=== PATIENT | male | born 1990 | race Two or more races ===

== ENCOUNTER 2018-03-16 15:43 | Outpatient (CLI) | payer SELFPAY ==
--- NOTE | 2018-03-17 01:18 | XRAY Report ---
Reason: POSITIVE PPD Procedure Date: 03/16/2018 Accession Number: [id number] / [id number] Procedure: XRN - Chest 2 View X-Ray CPT Code: 11881 FULL RESULT: EXAM: CHEST RADIOGRAPHY EXAM DATE: 03/16/2018 03:58 PM. CLINICAL HISTORY: POSITIVE PPD. COMPARISON: CHEST 2 VIEW PA/LAT 10/24/2013 5:05 AM. TECHNIQUE: 2 views. FINDINGS: Lungs/Pleura: No dense consolidation. No large effusion or pneumothorax. No pulmonary edema. Mediastinum: Heart and mediastinal contours are unremarkable. Other: None. IMPRESSION: Unremarkable chest radiographs. [facility]
== END 2018-03-16 15:44 | disposition home or self-care (01) ==
LOC: DI.N 15:43
PROVIDERS: ATTEND Nurse Practitioner Gerontology
DX: R76.11 Nonspecific reaction to tuberculin skin test without active tuberculosis (principal)
CPT/HCPCS: 71046

== ENCOUNTER 2018-04-28 08:00 | Outpatient (CLI) | payer OTHER ==
[2018-04-28 18:43] LABS: BASOPHILS % (AUTO) 0.7 %; EOSINOPHILS # (AUTO) 0.1 10^3/uL (0.0-0.7); HGB - HEMOGLOBIN 13.9 g/dL (14.0-18.0); LYMPHOCYTES # (AUTO) 2.1 10^3/uL (1.5-3.5); LYMPHOCYTES % (AUTO) 33.6 %; MEAN CORPUSCULAR HEMOGLOBIN 31.2 pg (27.0-31.0); MEAN CORPUSCULAR HGB CONC 34.5 g/dL (32.0-36.0); MEAN CORPUSCULAR VOLUME 90.6 fL (80.0-94.0); MEAN PLATELET VOLUME 8.1 fL (7.4-11.4); MONOCYTES # (AUTO) 0.7 10^3/uL (0.0-1.0); MONOCYTES % (AUTO) 11.5 %; NEUTROPHILS # (AUTO) 3.4 10^3/uL (1.5-6.6); NEUTROPHILS % (AUTO) 53.2 %; PLT - PLATELET COUNT 196 10^3/uL (130-450); RED BLOOD COUNT 4.47 10^6/uL (4.70-6.10); RED CELL DISTRIBUTION WIDTH 12.6 % (12.0-15.0); WHITE BLOOD COUNT 6.4 x10^3/uL (4.8-10.8)
[2018-04-28 19:37] LABS: CALCIUM 8.8 mg/dL (8.5-10.3); CREATININE 0.7 mg/dL (0.6-1.2)
== END 2018-04-28 23:59 | disposition home or self-care (01) ==
LOC: LAB.N 08:00
PROVIDERS: ATTEND Physician Assistant Medical
DX: N50.812 Left testicular pain (principal); N50.9 Disorder of male genital organs, unspecified
CPT/HCPCS: 36415; 80048; 85025

== ENCOUNTER 2018-06-07 15:27 | Outpatient (CLI) | payer OTHER ==
--- NOTE | 2018-06-07 17:22 | Ultrasound Report ---
Reason: LT TESTICULAR PAIN, MASS Procedure Date: 06/07/2018 Accession Number: [id number] / [id number] Procedure: US - Testicle CPT Code: FULL RESULT: EXAM:SCROTAL ULTRASOUND EXAM DATE: 06/07/2018 03:35 PM. CLINICAL HISTORY: LT TESTICULAR PAIN, MASS. COMPARISON: TESTICLE W/DOPPLER 06/07/2018 3:27 PM. TECHNIQUE: Real-time scanning was performed with static images obtained. Color-flow images were utilized. FINDINGS: Right: Testis: 4.7 x 2.7 x 2.9 cm. Normal size and echotexture. No mass, calcification, or abnormal blood flow. Epididymis: 0.8 x 1 x 1.3 cm. Normal size and echotexture. No mass or abnormal blood flow. Hydrocele: Trace right hydrocele. Varicocele: None Left: Testis: 4.7 x 3.1 x 3.1 cm. Normal size and echotexture. There are two separate complex cystic masses in the left testicle, measuring 2.8 x 2.7 x 3 cm and 1.4 x 1.3 x 1.4 cm. There is no internal vascularity on color Doppler assessment. Both complex cystic masses include internal septations, solid nodular components and cystic/fluid containing spaces. Epididymis: 0.6 x 1.2 x 0.9 cm. Normal size and echotexture. No mass or abnormal blood flow. Hydrocele: Trace left hydrocele. Varicocele: Mild left varicocele IMPRESSION: Two separate complex cystic masses in left testicle. Larger measures 2.8 x 2.7 x 3 cm and smaller measures 1.4 x 1.3 x 1.4 cm. No internal vascularity on color Doppler assessment. Differentials include neoplasm (seminomatous or nonseminomatous germ cell tumor), complex hematomas (to be correlated with history of trauma. Trace bilateral hydroceles. Mild left varicocele. RAD[facility]
== END 2018-06-07 15:28 | disposition home or self-care (01) ==
LOC: DI 15:27
PROVIDERS: ATTEND Physician Assistant Medical
DX: N50.812 Left testicular pain (principal); N44.2 Benign cyst of testis; I86.1 Scrotal varices; N43.3 Hydrocele, unspecified
CPT/HCPCS: 76870

== ENCOUNTER 2019-03-28 10:01 | Outpatient (CLI) | payer OTHER | END 2019-03-28 10:02 | disposition home or self-care (01) | LOC: DI 10:01 | PROVIDERS: ATTEND Physician Assistant Medical | DX: R01.1 Cardiac murmur, unspecified (principal) | CPT/HCPCS: 93306 ==

== ENCOUNTER 2019-12-23 08:00 | Outpatient (CLI) | payer OTHER | END 2019-12-23 23:59 | disposition home or self-care (01) | LOC: LAB.WCP 08:00 | PROVIDERS: ATTEND Internal Medicine | DX: Z23 Encounter for immunization (principal) | CPT/HCPCS: 36415; 81599; 86480 ==

== ENCOUNTER 2020-01-02 12:33 | Outpatient (CLI) | payer OTHER ==
--- NOTE | 2020-01-02 17:11 | XRAY Report ---
PROCEDURE: Chest 2 View X-Ray INDICATIONS: LATENT TB TECHNIQUE: 2 view(s) of the chest. COMPARISON: None. FINDINGS: Surgical changes and devices: None. Lungs and pleura: No pleural effusions or pneumothorax. Lungs are clear. Mediastinum: Mediastinal contours are normal. Heart size is normal. Bones and chest wall: No suspicious bony abnormalities. Soft tissues appear unremarkable. IMPRESSION: No sign of chronic or acute tuberculosis. Normal for age. Reviewed by: Danielito Martin MD on 01/02/2020 5:10 PM PST Approved by: Danielito Martin MD on 01/02/2020 5:10 PM PST Station ID: [id number]
== END 2020-01-02 12:34 | disposition home or self-care (01) ==
LOC: DI.WCP 12:33
PROVIDERS: ATTEND Internal Medicine
DX: Z22.7 Latent tuberculosis (principal)
CPT/HCPCS: 71046

== ENCOUNTER 2020-01-18 16:49 | Outpatient (CLI) | payer OTHER ==
[2020-01-18 21:07] LABS: ALBUMIN 4.4 g/dL (3.2-5.5); ALBUMIN/GLOBULIN RATIO 1.4 (1.0-2.2); BILIRUBIN,TOTAL 0.6 mg/dL (0.2-1.0); CREATININE 0.7 mg/dL (0.6-1.2); TOTAL PROTEIN 7.6 g/dL (6.7-8.2)
== END 2020-01-18 16:50 | disposition home or self-care (01) ==
LOC: LAB.N 16:49
PROVIDERS: ATTEND Internal Medicine
DX: Z22.7 Latent tuberculosis (principal)
CPT/HCPCS: 36415; 80053

== ENCOUNTER 2020-02-14 08:00 | Outpatient (CLI) | payer OTHER ==
[2020-02-14 18:35] LABS: ALBUMIN 4.4 g/dL (3.2-5.5); ALBUMIN/GLOBULIN RATIO 1.4 (1.0-2.2); BILIRUBIN,TOTAL 0.5 mg/dL (0.2-1.0); CALCIUM 9.4 mg/dL (8.5-10.3); CREATININE 0.7 mg/dL (0.6-1.2); TOTAL PROTEIN 7.6 g/dL (6.7-8.2)
== END 2020-02-14 23:59 | disposition home or self-care (01) ==
LOC: LAB.WCP 08:00
PROVIDERS: ATTEND Nurse Practitioner Family
DX: Z22.7 Latent tuberculosis (principal)
CPT/HCPCS: 36415; 80053

== ENCOUNTER 2020-03-09 09:48 | Outpatient (CLI) | payer OTHER ==
[2020-03-09 13:14] LABS: ALBUMIN 4.3 g/dL (3.2-5.5); BILIRUBIN,DIRECT 0.1 mg/dL (0.1-0.5); BILIRUBIN,TOTAL 0.7 mg/dL (0.2-1.0); TOTAL PROTEIN 7.7 g/dL (6.7-8.2)
== END 2020-03-09 23:59 | disposition home or self-care (01) ==
LOC: LAB.WCP 09:48
PROVIDERS: ATTEND Internal Medicine
DX: Z22.7 Latent tuberculosis (principal)
CPT/HCPCS: 36415; 80076

== ENCOUNTER 2020-04-09 08:00 | Outpatient (CLI) | payer OTHER ==
[2020-04-09 18:31] LABS: ALBUMIN 4.3 g/dL (3.2-5.5); BILIRUBIN,DIRECT 0.1 mg/dL (0.1-0.5); BILIRUBIN,TOTAL 0.9 mg/dL (0.2-1.0); TOTAL PROTEIN 7.7 g/dL (6.7-8.2)
== END 2020-04-09 23:59 | disposition home or self-care (01) ==
LOC: LAB.WCP 08:00
PROVIDERS: ATTEND Internal Medicine
DX: Z22.7 Latent tuberculosis (principal)
CPT/HCPCS: 36415; 80076

== ENCOUNTER 2020-05-08 08:00 | Outpatient (CLI) | payer OTHER ==
[2020-05-08 18:37] LABS: ALBUMIN 4.5 g/dL (3.2-5.5); ALKALINE PHOSPHATASE 35 IU/L (42-121); ALT ALANINE AMINOTRANSFERASE 35 IU/L (10-60); AST ASPARTATE AMINOTRANSFERASE 31 IU/L (10-42); BILIRUBIN,TOTAL 0.7 mg/dL (0.2-1.0); TOTAL PROTEIN 7.7 g/dL (6.7-8.2)
[2020-05-08 18:44] LABS: BILIRUBIN,DIRECT < 0.1 mg/dL (0.1-0.5)
== END 2020-05-08 23:59 | disposition home or self-care (01) ==
LOC: LAB.WCP 08:00
PROVIDERS: ATTEND Internal Medicine
DX: Z22.7 Latent tuberculosis (principal)
CPT/HCPCS: 36415; 80076

== ENCOUNTER 2020-06-06 08:00 | Outpatient (CLI) | payer OTHER ==
[2020-06-06 18:31] LABS: ALBUMIN 4.3 g/dL (3.2-5.5); ALKALINE PHOSPHATASE 31 IU/L (42-121); ALT ALANINE AMINOTRANSFERASE 36 IU/L (10-60); AST ASPARTATE AMINOTRANSFERASE 34 IU/L (10-42); BILIRUBIN,TOTAL 0.7 mg/dL (0.2-1.0); TOTAL PROTEIN 7.3 g/dL (6.7-8.2)
[2020-06-06 18:48] LABS: BILIRUBIN,DIRECT < 0.1 mg/dL (0.1-0.5)
== END 2020-06-06 23:59 | disposition home or self-care (01) ==
LOC: LAB.WCP 08:00
PROVIDERS: ATTEND Internal Medicine
DX: Z22.7 Latent tuberculosis (principal); Z23 Encounter for immunization
CPT/HCPCS: 36415; 80076

== ENCOUNTER 2020-07-19 08:00 | Outpatient (CLI) | payer OTHER ==
[2020-07-19 18:25] LABS: ALBUMIN 4.4 g/dL (3.2-5.5); BILIRUBIN,DIRECT 0.1 mg/dL (0.1-0.5); BILIRUBIN,TOTAL 0.7 mg/dL (0.2-1.0); TOTAL PROTEIN 7.7 g/dL (6.7-8.2)
== END 2020-07-19 23:59 | disposition home or self-care (01) ==
LOC: LAB.WCP 08:00
PROVIDERS: ATTEND Internal Medicine
DX: Z22.7 Latent tuberculosis (principal); Z79.899 Other long term (current) drug therapy
CPT/HCPCS: 36415; 80076

== ENCOUNTER 2020-08-10 08:00 | Outpatient (CLI) | payer OTHER ==
[2020-08-10 18:04] LABS: ALBUMIN 4.4 g/dL (3.2-5.5); ALKALINE PHOSPHATASE 35 IU/L (42-121); ALT ALANINE AMINOTRANSFERASE 33 IU/L (10-60); AST ASPARTATE AMINOTRANSFERASE 25 IU/L (10-42); BILIRUBIN,TOTAL 0.8 mg/dL (0.2-1.0); TOTAL PROTEIN 7.7 g/dL (6.7-8.2)
[2020-08-10 18:06] LABS: BILIRUBIN,DIRECT < 0.1 mg/dL (0.1-0.5)
== END 2020-08-10 23:59 | disposition home or self-care (01) ==
LOC: LAB.WCP 08:00
PROVIDERS: ATTEND Internal Medicine
DX: Z22.7 Latent tuberculosis (principal); Z23 Encounter for immunization
CPT/HCPCS: 36415; 80076

== ENCOUNTER 2020-09-06 15:05 | Outpatient (CLI) | payer OTHER ==
[2020-09-06 18:24] LABS: ALBUMIN 4.5 g/dL (3.2-5.5); BILIRUBIN,DIRECT 0.1 mg/dL (0.1-0.5); BILIRUBIN,TOTAL 1.1 mg/dL (0.2-1.0); TOTAL PROTEIN 7.7 g/dL (6.7-8.2)
== END 2020-09-06 23:59 | disposition home or self-care (01) ==
LOC: LAB.WCP 15:05
PROVIDERS: ATTEND Internal Medicine
DX: Z22.7 Latent tuberculosis (principal)
CPT/HCPCS: 36415; 80076

== ENCOUNTER 2020-10-11 08:00 | Outpatient (CLI) | payer OTHER ==
[2020-10-11 18:14] LABS: ALBUMIN 4.3 g/dL (3.2-5.5); BILIRUBIN,DIRECT 0.1 mg/dL (0.1-0.5); TOTAL PROTEIN 7.4 g/dL (6.7-8.2)
== END 2020-10-11 23:59 | disposition home or self-care (01) ==
LOC: LAB.WCP 08:00
PROVIDERS: ATTEND Internal Medicine
DX: Z22.7 Latent tuberculosis (principal)
CPT/HCPCS: 36415; 80076